=== PATIENT | female | born 1985 | race Caucasian/White ===

== ENCOUNTER → 2018-02-28 15:00 | Outpatient (CLI) | payer SELFPAY ==
[2018-03-01 11:57] LABS: Group B Strep DNA By PCR Negative (Negative); Internal Control PASS; Probe Check PASS; Specimen Processing Control PASS
== END ==
PROVIDERS: Visit Provider Obstetrics & Gynecology
DX: Z36.85 Encounter for antenatal screening for Streptococcus B (principal)
CPT/HCPCS: 87081; 87653